=== PATIENT | female | born 1945 | race Caucasian/White ===

== ENCOUNTER 2016-06-01 08:04 | Day surgery (SDC) | payer MEDICARE, OTHER ==
[~2016-06-01] VITALS: Ht 165.1 cm; Wt 59.0 kg
[~2016-06-01 08:04] MED LIST: ACID1TAB3 PO; AMLO5TAB4 PO; BACL-19 PO; CLON0.5T PO; DAPT500V6 IVPB; DOCU100T3 PO; HEPA1DIS11 SQ; HYDR2TAB13 PO; LEVO112T2 PO; LOSA100T2 PO; MAGN400T7 PO; OXYC-229 PO; OXYC10TA32 PO; PANT40TA3 PO; PIPE2.255 IVPB; PIPE4.5F2 IV; VALA500T PO
[2016-06-01] MEDS ORDERED: LACTATED RINGERS 1,000 ML IV SCH (09:09)
[2016-06-01 09:12] VITALS: BP 156/76
[2016-06-01] MEDS ORDERED: BUPIVACAINE/PF-EPI 0.25% 1:200K ONE (09:39)
[2016-06-01] MEDS ORDERED: FENTANYL PF 100 MCG/2ML ONE (09:39)
[2016-06-01] MEDS ORDERED: PROPOFOL 10 MG/ML, 20ML ONE (09:49)
[2016-06-01] MEDS ORDERED: ONDANSETRON 2MG/ML, 2ML ONE (09:49)
[2016-06-01] MEDS ORDERED: CEFAZOLIN 1,000 MG ONE (09:49)
[2016-06-01] MEDS ORDERED: morphine SULFATE 10 MG/ML, 1ML IVPush PRN (10:30)
[2016-06-01] MEDS ORDERED: OXYcodone 5 MG/5 ML ORAL.SOL UDC PO PRN (10:30)
[2016-06-01] MEDS ORDERED: HYDROmorphone 1 MG/ML, 1ML IV PRN (10:30)
[2016-06-01] MEDS ORDERED: FENTANYL PF 100 MCG/2ML IV PRN (10:30)
[2016-06-01] MEDS ORDERED: KETOROLAC 30 MG/1 ML IVPush PRN (10:30)
[2016-06-01] MEDS ORDERED: ONDANSETRON 2MG/ML, 2ML IVPush PRN ×2 (10:30)
[2016-06-01] MEDS ORDERED: LABETALOL 5MG/ML, 20ML IV PRN (10:30)
[2016-06-01] MEDS ORDERED: hydrALAzine 20 MG/ML, 1ML IV PRN (10:30)
[2016-06-01] MEDS ORDERED: OXYcodone 5 MG/5 ML ORAL.SOL UDC ONE (10:53)
== END 2016-06-01 12:45 ==
LOC: OUT 08:04
PROVIDERS: ATTEND Surgery
DX: D17.1 Benign lipomatous neoplasm of skin and subcutaneous tissue of trunk (principal); I12.9 Hypertensive chronic kidney disease with stage 1 through stage 4 chronic kidney disease, or unspecified chronic kidney disease; N18.9 Chronic kidney disease, unspecified; E03.9 Hypothyroidism, unspecified; Z85.72 Personal history of non-Hodgkin lymphomas
CPT/HCPCS: 22900; 88304; 93005; J0690; J2405; J2704; J3010; J7120

== ENCOUNTER 2017-03-22 08:45 | Day surgery (SDC) | payer MEDICARE, OTHER ==
[~2017-03-22] VITALS: Ht 165.1 cm; Wt 59.2 kg
[~2017-03-22 08:45] MED LIST changes: -HYDR2TAB13 PO; +HYDR2TAB29 PO; -OXYC-229 PO; +OXYC-307 PO; -OXYC10TA32 PO; +OXYC10TA47 PO
[2017-03-22] MEDS ORDERED: SODIUM CHLORIDE 0.9% 1,000 ML IV SCH (09:32)
[2017-03-22 09:35] VITALS: BP 171/75
[2017-03-22] MEDS ORDERED: PLEASE ENTER HEIGHT AND WEIGHT MC SCH (10:00)
[2017-03-22 10:07] LABS: INTERNATIONAL NORMALIZED RATIO 0.98 (0.93-1.1); PROTHROMBIN TIME 10.2 Seconds (9.6-11.5)
[2017-03-22] MEDS ORDERED: FLUMAZENIL 0.1 MG/1 ML, 5ML ONE (11:04)
[2017-03-22] MEDS ORDERED: MIDAZOLAM 1 MG/ML, 2ML ONE (11:04)
[2017-03-22] MEDS ORDERED: FENTANYL PF 100 MCG/2ML ONE ×2 (11:04)
[2017-03-22] MEDS ORDERED: NALOXONE 1 MG/ML, 2ML ONE (11:05)
== END 2017-03-22 13:15 | disposition home or self-care (01) ==
LOC: OUT 08:45
PROVIDERS: ATTEND Nurse Practitioner Gerontology
DX: N26.9 Renal sclerosis, unspecified (principal); N18.4 Chronic kidney disease, stage 4 (severe); Z85.72 Personal history of non-Hodgkin lymphomas
CPT/HCPCS: 36415; 50200; 77012; 85610; 88300; 99156; J2250; J3010; 99157; J2310

== ENCOUNTER 2019-02-18 13:48 | Outpatient (CLI) | payer MEDICARE, OTHER ==
[~2019-02-18 13:48] MED LIST changes: -MAGN400T7 PO; +MAGN400T9 PO
== END 2019-02-18 23:59 | disposition home or self-care (01) ==
LOC: CVU 13:48
PROVIDERS: ATTEND Surgery
DX: I87.1 Compression of vein (principal); I12.0 Hypertensive chronic kidney disease with stage 5 chronic kidney disease or end stage renal disease; N18.5 Chronic kidney disease, stage 5
CPT/HCPCS: 93990